=== PATIENT | female | born 1980 | race Two or more races ===

== ENCOUNTER 2023-05-01 12:56 | Emergency (ER) | payer OTHER ==
[~2023-05-01] VITALS: Ht 167.6 cm; Wt 99.8 kg
[2023-05-01] MEDS ORDERED: ALLEGRA ALLERG180 MG PO (14:12)
== END 2023-05-01 14:55 | disposition home or self-care (01) ==
LOC: ER 12:56
DX: T78.1XXA Other adverse food reactions, not elsewhere classified, initial encounter (principal); X58.XXXA Exposure to other specified factors, initial encounter; Z91.013 Allergy to seafood